=== PATIENT | female | born 1980 | race African-American/Black ===

== ENCOUNTER 2018-02-21 09:24 | Emergency (ER) | payer SELFPAY ==
[~2018-02-21] VITALS: Ht 170.2 cm; Wt 106.6 kg
[2018-02-21 09:39] VITALS: BP 144/84
[2018-02-21] MEDS ORDERED: POLY10DR3 EACHEYE (09:50)
--- NOTE | 2018-02-21 09:51 | PHYS DOC ---
Adult General Chief Complaint Chief Complaint: EYE PROBLEMS [facility] HPI Patient is a 38 year old female who presents with left red conjunctiva, itching , eye discharge, and pain x 4 days. Patient is alert and oriented. Patient denies fever or recent illness. 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 Patient states that her right eye is now starting to itch. Review of Systems Review of Systems Constitutional: Denies fever or chills [] Eyes: Denies change in visual acuity, redness, or eye pain [] HENT: Denies nasal congestion or sore throat [] Respiratory: Denies cough or shortness of breath [] Cardiovascular: No additional information not addressed in HPI [] GI: Denies abdominal pain, nausea, vomiting, bloody stools or diarrhea [] : Denies dysuria or hematuria [] Musculoskeletal: Denies back pain or joint pain [] Integument: Denies rash or skin lesions [] Neurologic: Denies headache, focal weakness or sensory changes [] Endocrine: Denies polyuria or polydipsia [] All other systems were reviewed and found to be within normal limits, except as documented in this note. Allergies Allergies Allergies Coded Allergies Type Severity Reaction Last Updated Verified Penicillins Allergy Intermediate Shortness of Air 02/21/18 Yes Physical Exam Physical Exam Constitutional: Well developed, well nourished, no acute distress, non-toxic appearance. [] HENT: Normocephalic, atraumatic, bilateral external ears normal, oropharynx moist, no oral exudates, nose normal. [] Eyes: PERRLA, EOMI, Conjunctiva red, Discharge, pain, light sensitivity. [] Neck: Normal range of motion, no tenderness, supple, no stridor. [] Cardiovascular:Heart rate regular rhythm, no murmur [] Lungs & Thorax: Bilateral breath sounds clear to auscultation [] Abdomen: Bowel sounds normal, soft, no tenderness, no masses, no pulsatile masses. [] Skin: Warm, dry, no erythema, no rash. [] Back: No tenderness, no CVA tenderness. [] Extremities: No tenderness, no cyanosis, no clubbing, ROM intact, no edema. [] Neurologic: Alert and oriented X 3, normal motor function, normal sensory function, no focal deficits noted. [] Psychologic: Affect normal, judgement normal, mood normal. [] Current Patient Data Vital Signs Vital Signs Date Time Temp Pulse Resp B/P (MAP) Pulse Ox O2 Delivery O2 Flow Rate FiO2 02/21/18 09:39 98.7 68 18 144/84 (104) 100 Room Air 98.7 EKG EKG [] Radiology/Procedures Radiology/Procedures [] Course & Med Decision Making Course & Med Decision Making Patient is alert and oriented. Patient states her left eye began turning red, swollen, itching, pain, light sensitivity 4 days ago. Patient states now her right eye is beginning to itch. Right eye is not red or swollen and is without discharge. Left eye has red conjunctiva, swelling, and light sensitivity. No foreign bodies are seen in eye. PERRLA. Patient is neurologically intact. Patient is given polymyxin eye drops to apply bilaterally QID x 5 days. Patient to follow up with a primary care physician if getting worse. imedla : I was working in the Emergency Department when this patient was seen. I did not see this patient. I was available at all times for consultation as needed. Imelda Vernon Disclaimer Saulo Disclaimer This electronic medical record was generated, in whole or in part, using a voice recognition dictation system. Departure Departure Impression: Primary Impression: [place] eye disease of left eye Disposition: HOME, SELF-CARE Condition: STABLE Referrals: NO PCP (PCP) Patient Instructions: Conjunctivitis (Viral and Bacterial) Additional Instructions: Follow up with your primary care if not getting better Scripts Polymyxin B Sulf/Trimethoprim (POLYMYXIN B-TMP EYE DROPS) 10 Ml Drops 1 DROP EACHEYE QID for Conjunctivitis for 5 Days, #10 ML Prov: TIFFANY OTT APRN 02/21/18 TIFFANY OTT APRN Feb 21, 2018 09:51 BRYAN VILLARREAL MD Feb 22, 2018 06:34
== END 2018-02-21 10:06 | disposition home or self-care (01) ==
LOC: ER 09:24
DX: H10.022 Other mucopurulent conjunctivitis, left eye (principal); Z88.0 Allergy status to penicillin
CPT/HCPCS: 99283

== ENCOUNTER 2018-04-16 06:40 | Emergency (ER) | payer BC ==
[~2018-04-16] VITALS: Ht 170.2 cm; Wt 108.9 kg
[~2018-04-16 06:40] MED LIST: POLY10DR3 EACHEYE
[2018-04-16 07:21] VITALS: BP 133/62
[2018-04-16] MEDS ORDERED: GENT5DRO3 EACHEYE (07:44)
--- NOTE | 2018-04-16 07:44 | PHYS DOC ---
Past Medical History Past Medical History: No Pertinent History Past Surgical History: Alcohol Use: None Drug Use: None Adult General Chief Complaint Chief Complaint: EYE PROBLEMS HPI HPI Patient is a 38 year old female presented to the ER today for evaluation of left eye redness and irritation for the last 3 days. No injury. Patient denied any blurry vision. NO headache, no neck pain, no fever. Patient does not wear contact lens, no history of diabetic. Review of Systems Review of Systems Constitutional: Denies fever or chills [] Eyes: left eye redness and irritation. HENT: Denies nasal congestion or sore throat [] Respiratory: Denies cough or shortness of breath [] Cardiovascular: No additional information not addressed in HPI [] GI: Denies abdominal pain, nausea, vomiting, bloody stools or diarrhea [] : Denies dysuria or hematuria [] Musculoskeletal: Denies back pain or joint pain [] Integument: Denies rash or skin lesions [] Neurologic: Denies headache, focal weakness or sensory changes [] Endocrine: Denies polyuria or polydipsia [] All other systems were reviewed and found to be within normal limits, except as documented in this note. Allergies Allergies Allergies Coded Allergies Type Severity Reaction Last Updated Verified Penicillins Allergy Intermediate Shortness of Air 02/21/18 Yes Physical Exam Physical Exam Constitutional: Well developed, well nourished, no acute distress, non-toxic appearance. [] HENT: Normocephalic, atraumatic, bilateral external ears normal, oropharynx moist, no oral exudates, nose normal. [] Eyes: PERRLA, EOMI,left conjunctiva injection, no discharge. Neck: Normal range of motion, no tenderness, supple, no stridor. [] Cardiovascular:Heart rate regular rhythm, no murmur [] Lungs & Thorax: Bilateral breath sounds clear to auscultation [] Abdomen: deferred. Skin: Warm, dry, no erythema, no rash. [] Back: deferred. Extremities: No tenderness, no cyanosis, no clubbing, ROM intact, no edema. [] Neurologic: Alert and oriented X 3, normal motor function, normal sensory function, no focal deficits noted. [] Psychologic: Affect normal, judgement normal, mood normal. [] Current Patient Data Vital Signs Vital Signs Date Time Temp Pulse Resp B/P (MAP) Pulse Ox O2 Delivery O2 Flow Rate FiO2 04/16/18 07:21 98.7 62 20 133/62 (85) 97 Room Air 98.7 EKG EKG [] Radiology/Procedures Radiology/Procedures [] Course & Med Decision Making Course & Med Decision Making Pertinent Labs and Imaging studies reviewed. (See chart for details) [] Dragon Disclaimer Dragon Disclaimer This electronic medical record was generated, in whole or in part, using a voice recognition dictation system. Departure Departure Impression: Primary Impression: Conjunctivitis, left eye Disposition: HOME, SELF-CARE Condition: STABLE Referrals: NO PCP (PCP) please follow up with an pawn broker next week for reevaluation. Patient Instructions: Bacterial Conjunctivitis Scripts Gentamicin Sulfate (GENTAMICIN SULFATE 0.3% OPHTH SOLN) 5 Ml Drops 2 DROP EACHEYE QID, #5 ML Prov: MARKUS TAYLOR DO 04/16/18 MARKUS TAYLOR DO Apr 16, 2018 07:44
== END 2018-04-16 08:08 | disposition home or self-care (01) ==
LOC: ER 06:40
DX: H10.89 Other conjunctivitis (principal); Z98.890 Other specified postprocedural states; Z88.0 Allergy status to penicillin
CPT/HCPCS: 99283

== ENCOUNTER 2018-10-22 06:32 | Day surgery (SDC) | payer BC ==
[~2018-10-22] VITALS: Ht 175.3 cm; Wt 103.4 kg
[~2018-10-22 06:32] MED LIST changes: +GENT5DRO3 EACHEYE
[2018-10-22] MEDS ORDERED: PROCHLORPERAZINE 10 MG/2 ML VIAL. IV PRN (07:00)
[2018-10-22] MEDS ORDERED: MORPHINE SULFATE 2 MG/ML VIAL. IV PRN (07:00)
[2018-10-22] MEDS ORDERED: IV RINGERS,LACTATED 1000ML 1,000 ML IV SCH (07:00)
[2018-10-22] MEDS ORDERED: fentaNYL PF VIAL 100 MCG/2 ML VIAL IV PRN (07:00)
[2018-10-22] MEDS ORDERED: LIDOCAINE 1% PF 2 ML VIAL. ID PRN (07:00)
[2018-10-22] MEDS ORDERED: HYDROmorphone 2 MG/ML VIAL IV PRN (07:00)
[2018-10-22] MEDS ORDERED: ONDANSETRON PF 4 MG/2 ML VIAL. IV PRN (07:00)
[2018-10-22 07:03] LABS: U PREG PATIENT NEGATIVE (NEG)
[2018-10-22] MEDS ORDERED: LIDOCAINE 2%/EPI 1:100,000 20 ML VIAL. ONE (07:19)
[2018-10-22] MEDS ORDERED: FERRIC SUBSULFATE 8 ML SOL.W.APPL TP ONE ×2 (07:30→09:16)
[2018-10-22] MEDS ORDERED: LIDOCAINE 1%/EPI 1:100,000 20 ML VIAL. ONE (07:30)
[2018-10-22] MEDS ORDERED: SEVOFLURANE 31 TO 60 MINUTES. IH ONE (07:43)
[2018-10-22] MEDS ORDERED: LIDOCAINE 2% PF 5 ML VIAL. ONE (07:44)
[2018-10-22] MEDS ORDERED: PROPOFOL 20 ML IV ONE (07:44)
[2018-10-22] MEDS ORDERED: MIDAZOLAM HCL/PF 2 MG/2 ML VIAL. ONE (07:44)
[2018-10-22] MEDS ORDERED: ONDANSETRON PF 4 MG/2 ML VIAL. ONE (07:44)
[2018-10-22] MEDS ORDERED: fentaNYL PF VIAL 100 MCG/2 ML VIAL ONE (07:44)
[2018-10-22] MEDS ORDERED: PHENYLEPHRINE in 0.9% NACL PF 1 MG/10 ML SYRINGE. IV ONE (07:52)
--- NOTE | 2018-10-22 09:03 | PDOC ---
BRIEF OPERATIVE NOTE Date: Oct 22, 2018 Pre-Op Diagnosis Cervical Dysplasia Post-Op Diagnosis Same Procedure Performed Cervical Cone Biopsy Surgeon Dr. Saxena Anesthesia Type: General Blood Loss 5 ml Specimens Obtained cervical cone biopsy Findings cervical dysplasia Complications none Operative Note see dictation FRED SAXENA Jr, MD Oct 22, 2018 09:03
--- NOTE | 2018-10-22 09:05 | DISCH ---
DISCHARGE INSTRUCTIONS Condition on Discharge Condition on Discharge: Stable Activity After Discharge Activity Instructions for Disc: Activity as tolerated Lifting Instructions after Dis: No heavy lifting Driving Instructions after Dis: Do not drive today Diet after Discharge Diet after Discharge: Regular Contacting the DRNohemy after DC Call your doctor for: Concerns you may have Follow-Up Follow up with: Dr. Saxena in 1 week. FRED SAXENA Jr, MD Oct 22, 2018 09:05
[2018-10-22] MEDS: fentaNYL PF VIAL 100 MCG/2 ML VIAL IV PRN ×2 (09:25→10:04)
[2018-10-22] MEDS ORDERED: oxyCODONE/APAP 5/325 1 TAB TABLET PO ONE ×2 (09:30)
--- NOTE | 2018-10-22 09:31 | OP ---
DATE OF SURGERY: PREOPERATIVE DIAGNOSIS: Cervical dysplasia. POSTOPERATIVE DIAGNOSIS: Cervical dysplasia. PROCEDURE: Cervical cone biopsy. SURGEON: Fred Saxena MD ANESTHESIA: GETA. ESTIMATED BLOOD LOSS: Less than 5 mL. COMPLICATIONS: None. FINDINGS: Cervical dysplasia. SUMMARY: A 38-year-old female with cervical dysplasia. At the time of colposcopic biopsy requiring cold knife cone biopsy. The patient was counseled on risks, benefits and expectations and voiced a clear understanding to proceed. DESCRIPTION OF PROCEDURE: The patient was taken to surgery suite and placed in dorsal lithotomy position. She was prepped with Betadine solution and draped in a sterile fashion. After adequate anesthesia, weighted speculum and curved Elayne placed vaginally. The anterior lip of the cervix was grasped with a single tooth tenaculum. A 2-0 Vicryl suture was placed at 3 o'clock and 9 o'clock position for stabilization of the cervix. Lidocaine 1% with epinephrine injected in a circumferential manner. Cold knife cone biopsy was performed with a scalpel in which the anterior and posterior lip of the cervix removed in a cone shape. The remaining cervix was fulgurated with Bovie cautery and Monsel solution was also added for better hemostasis. The single tooth tenaculum and weighted speculum were then removed. The patient tolerated the procedure well and was taken to recovery room in stable condition. Sponge and needle counts correct x 3. FRED SAXENA MD DR: ALLAN/miladis JOB#: [id number] / [id number]
[2018-10-22] MEDS ORDERED: OXYC1TAB15 PO (09:57)
[2018-10-22 10:10] VITALS: BP 116/90
[2018-10-23] MEDS ORDERED: IBUP-1060 PO (21:43)
--- NOTE | 2018-10-26 11:09 | PATHOLOGY ---
[facility] Accession Number: [id number] . 01 Material submitted: . cervix - CERVICAL CONE BIOPSY . 01 Clinical history: . Cervical dysplasia . 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 - JARED-III is focally present at the endocervical margin. - Exocervical and deep endocervical margins negative for JARED-III. - Focal hypercornification of exocervix. - Chronic cervicitis with focal squamous metaplasia. . (JPM:mml; 10/23/2018) [facility]/10/26/2018 . 02 Comment: Sections of the cervical cone biopsy show foci of severe dysplasia / carcinoma in situ (JARED-III) with focal endocervical glandular extension. There is no evidence of invasive carcinoma. Other areas of the cone show foci of mild dysplasia with changes of HPV effect. JARED-III is focally present at the endocervical margin. The exocervical and and deep endocervical margins are negative for JARED-III. . (JPM:mml; 10/23/2018) . 02 Electronically signed: . Lester Boles MD, Pathologist NPI- [id number] . 01 Gross description: . The specimen is received in formalin, labeled "[place]any [place], cervical cone biopsy" and consists of an oriented cervical cone measuring 2.4 x 2.0 x 1.0 cm. A suture is present designating 12:00. The 0.5 cm cervical os is surrounded by glistening pink-wright ectocervical mucosa. The proximal margin is inked blue and the ectocervical rim black. It is radially sectioned and entirely submitted as follows: . A1: 12-3:00 A2: 3-6:00 A3: 6-9:00 A4: 9-12:00 (SDY; 10/22/2018) SYU/SYU . 02 Pathologist provided ICD-10: D06.9, N72 . 02 CPT . 860322 Specimen Comment: A courtesy copy of this report has been sent to Specimen Comment: [phone]. Specimen Comment: Report sent to Performed at: [address] [id number] MD Jamie Calloway MD Phone: [phone] Performed at: [address] [id number] MD Lester Boles MD Phone: [phone]
== END 2018-10-22 10:52 | disposition home or self-care (01) ==
LOC: SURG 06:32
PROVIDERS: ATTEND Obstetrics & Gynecology
DX: D06.0 Carcinoma in situ of endocervix (principal); N72 Inflammatory disease of cervix uteri; Z88.0 Allergy status to penicillin; Z98.890 Other specified postprocedural states
CPT/HCPCS: 57520; 81025; J0696; J0780; J2001; J2250; J2370; J2405; J2704; J3010; J3490; 88307

== ENCOUNTER 2018-10-23 20:57 | Emergency (ER) | payer BC ==
[~2018-10-23] VITALS: Ht 167.6 cm; Wt 104.3 kg
[~2018-10-23 20:57] MED LIST changes: +OXYC1TAB15 PO
[2018-10-23 21:10] VITALS: BP 148/72
--- NOTE | 2018-10-23 21:30 | PHYS DOC ---
Past Medical History Past Medical History: No Pertinent History Past Surgical History: Alcohol Use: None Drug Use: None Adult General Chief Complaint Chief Complaint: POST-OP PROBLEM HPI HPI Patient is a 38 year old F who had a colposcopy done yesterday by Dr. Luevano. She was prescribed percocet but states she took one and it made her throat swell so she has just been taking tylenol. She is here due to a discomfort in the vaginal area that she describes as a "tightness". Review of Systems Review of Systems Constitutional: Denies fever or chills [] Eyes: Denies change in visual acuity, redness, or eye pain [] HENT: Denies nasal congestion or sore throat [] Respiratory: Denies cough or shortness of breath [] Cardiovascular: No additional information not addressed in HPI [] GI: Denies abdominal pain, nausea, vomiting, bloody stools or diarrhea [] : Denies dysuria or hematuria. Vaginal pain and pink drainage. Musculoskeletal: Denies back pain or joint pain [] Integument: Denies rash or skin lesions [] Neurologic: Denies headache, focal weakness or sensory changes [] Endocrine: Denies polyuria or polydipsia [] All other systems were reviewed and found to be within normal limits, except as documented in this note. Current Medications Current Medications Current Medications Medications (Trade) Dose Ordered Sig/Barbara Start Time Stop Time Status Last Admin Dose Admin Ibuprofen (Motrin) 800 mg 1X ONCE 10/23/18 22:00 10/23/18 22:01 DC 10/23/18 22:00 800 MG Allergies Allergies Allergies Coded Allergies Type Severity Reaction Last Updated Verified Penicillins Allergy Intermediate Shortness of Air 10/21/18 Yes Physical Exam Physical Exam Constitutional: Well developed, well nourished, no acute distress, non-toxic appearance. [] Neck: Normal range of motion, no tenderness, supple, no stridor. [] Cardiovascular:Heart rate regular rhythm, no murmur [] Lungs & Thorax: Bilateral breath sounds clear to auscultation [] Abdomen: Bowel sounds normal, soft, no tenderness, no masses, no pulsatile masses. [] Skin: Warm, dry, no erythema, no rash. [] Back: No tenderness, no CVA tenderness. [] Extremities: No tenderness, no cyanosis, no clubbing, ROM intact, no edema. [] Neurologic: Alert and oriented X 3, normal motor function, normal sensory function, no focal deficits noted. [] Psychologic: Affect normal, judgement normal, mood normal. [] : speculum exam done: small amt of pink tinged discharge in vaginal vault, raw tissue in cervix and vaginal region. No signs of infection or heavy bleeding. Normal exam for 1 day s/p colposcopy. Current Patient Data Vital Signs Vital Signs Date Time Temp Pulse Resp B/P (MAP) Pulse Ox O2 Delivery O2 Flow Rate FiO2 10/23/18 21:10 98.2 70 16 148/72 (97) 98 Room Air 98.2 EKG EKG [] Radiology/Procedures Radiology/Procedures [] Course & Med Decision Making Course & Med Decision Making Pertinent Labs and Imaging studies reviewed. (See chart for details) I recommended Ibuprofen to help with pain with the inflammation that is to be expected post procedure. Will write for 800mg Ibuprofen. Pt to f/u with her OB on Friday if symptoms persist. Note written for off work 2 days. Dragon Disclaimer Dragon Disclaimer This electronic medical record was generated, in whole or in part, using a voice recognition dictation system. Departure Departure Impression: Primary Impression: Post procedure discomfort Disposition: HOME, SELF-CARE Condition: IMPROVED Referrals: NO PCP (PCP) FRED GARY Jr, MD Patient Instructions: Colposcopy, Care After, [id number] Additional Instructions: Rest, pelvic rest (no bike riding, horseback riding, jogging, sex, etc). Call your mantel craftsman on Friday to let him know how you are doing. Scripts Ibuprofen (IBUPROFEN) 800 Mg Tablet 800 MG PO PRN Q8HRS PRN for INFLAMMATION, #20 TAB with food Prov: LAKSHMI DUBON 10/23/18 LAKSHMI DUBON Oct 23, 2018 21:30
[2018-10-23] MEDS ORDERED: IBUP-1060 PO (21:43)
[2018-10-23] MEDS ORDERED: IBUPROFEN 400 MG TABLET. PO ONE (22:00)
== END 2018-10-23 22:00 | disposition home or self-care (01) ==
LOC: ER 20:57
DX: G89.18 Other acute postprocedural pain (principal); Z98.890 Other specified postprocedural states; Z88.0 Allergy status to penicillin
CPT/HCPCS: 99282

== ENCOUNTER 2019-04-12 00:27 | Emergency (ER) | payer BC ==
[~2019-04-12] VITALS: Ht 167.6 cm; Wt 105.2 kg
[~2019-04-12 00:27] MED LIST changes: +IBUP-1060 PO
[2019-04-12 00:36] VITALS: BP 128/79
[2019-04-12 00:43] LABS: BILIRUBIN,URINE NEGATIVE (NEG); CLARITY,URINE CLEAR; COLOR,URINE YELLOW; NITRITE,URINE NEGATIVE (NEG); PH,URINE 6.5; PROTEIN,URINE NEGATIVE (NEG-TRACE)
[2019-04-12 00:49] LABS: SQUAMOUS EPITHELIAL CELL,UR MOD /LPF
[2019-04-12 00:50] LABS: BACTERIA,URINE FEW /HPF (0-FEW)
[2019-04-12] MEDS ORDERED: CEPH-264 PO (01:12)
[2019-04-12] MEDS ORDERED: METR500T PO (01:12)
--- NOTE | 2019-04-12 01:13 | PHYS DOC ---
Past Medical History Past Medical History: Other Additional Past Medical Histor: cervical cancer Past Surgical History: Cancer Surgery, Alcohol Use: Rarely Drug Use: None Adult General Chief Complaint Chief Complaint: PAIN ON URINATION HPI HPI Patient is a 39 year old female that presents to the emergency Department with urinary urgency, and discomfort this been ongoing for week accompanied by fell odor. The patient denies any pain at this time. The patient states she saw her BAKING ASSISTANT 2 weeks ago and did not have any STDs. Review of Systems Review of Systems Constitutional: Denies fever or chills [] Eyes: Denies change in visual acuity, redness, or eye pain [] HENT: Denies nasal congestion or sore throat [] Respiratory: Denies cough or shortness of breath [] Cardiovascular: No additional information not addressed in HPI [] GI: Denies abdominal pain, nausea, vomiting, bloody stools or diarrhea [] : Reports odor, urgency, and dysuria Musculoskeletal: Denies back pain or joint pain [] Integument: Denies rash or skin lesions [] Neurologic: Denies headache, focal weakness or sensory changes [] Complete systems were reviewed and found to be within normal limits, except as documented in this note. Allergies Allergies Allergies Coded Allergies Type Severity Reaction Last Updated Verified Penicillins Allergy Intermediate Shortness of Air 10/21/18 Yes Physical Exam Physical Exam Constitutional: Well developed, well nourished, no acute distress, non-toxic appearance. [] HENT: Normocephalic, atraumatic, bilateral external ears normal, oropharynx moist, no oral exudates, nose normal. [] Eyes: PERRLA, EOMI, conjunctiva normal, no discharge. [] Neck: Normal range of motion, no tenderness, supple, no stridor. [] Skin: Warm, dry, no erythema, no rash. [] Back: No tenderness, no CVA tenderness. [] Extremities: No tenderness, no cyanosis, no clubbing, ROM intact, no edema. [] Neurologic: Alert and oriented X 3, normal motor function, normal sensory function, no focal deficits noted. [] Psychologic: Affect normal, judgement normal, mood normal. [] Current Patient Data Vital Signs Vital Signs Date Time Temp Pulse Resp B/P (MAP) Pulse Ox O2 Delivery O2 Flow Rate FiO2 04/12/19 00:36 98.1 64 20 128/79 (95) 100 Room Air 98.1 Lab Values Laboratory Tests Test 04/12/19 00:34 04/12/19 00:37 Urine Collection Type Unknown Urine Color Yellow Urine Clarity Clear Urine pH 6.5 Urine Specific [place] >=1.030 Urine Protein Negative mg/dL (NEG-TRACE) Urine Glucose (UA) Negative mg/dL (NEG) Urine Ketones (Stick) Negative mg/dL (NEG) Urine Blood Negative (NEG) Urine Nitrite Negative (NEG) Urine Bilirubin Negative (NEG) Urine Urobilinogen Dipstick 1.0 mg/dL (0.2 mg/dL) Urine Leukocyte Esterase Negative (NEG) Urine RBC 1-2 /HPF (0-2) Urine WBC 5-10 /HPF (0-4) Urine Squamous Epithelial Cells Mod /LPF Urine Bacteria Few /HPF (0-FEW) Urine Mucus Mod /LPF POC Urine HCG, Qualitative Hcg negative (Negative) EKG EKG [] Radiology/Procedures Radiology/Procedures [] Course & Med Decision Making Course & Med Decision Making Pertinent Labs and Imaging studies reviewed. (See chart for details) Urine has 5-10 WBC and patient is symptomatic. Will treat for UTI. Patient also states she has a foul odor. Discussed the possibility of Bacterial Vaginosis with patient and will treat. Dragon Disclaimer Dragon Disclaimer This electronic medical record was generated, in whole or in part, using a voice recognition dictation system. Departure Departure Impression: Primary Impression: Urinary tract infection Additional Impression: Bacterial vaginosis Disposition: 01 HOME, SELF-CARE Condition: STABLE Referrals: NO PCP (PCP) Patient Instructions: Bacterial Vaginosis, Urinary Tract Infection Additional Instructions: Thank you for visiting [facility]. We appreciate you trusting us with your care. If any additional problems come up don't hesitate to return to visit us. Please follow up with your primary care provider so they can plan additional care if needed and know about the problem that you had. If symptoms worsen come back to the Emergency Department. Any concerning symptoms that start such as chest pain, shortness of air, weakness or numbness on one side of the body, running high fevers or any other concerning symptoms return to the ER. You have been prescribed an antibiotic today to help fight your infection. Please take all of the antibiotic as directed. If after 48 hours the infection is not improving, please return for more care. If the infection worsens, return to ER for additional care. Scripts Metronidazole (FLAGYL) 500 Mg Tablet 1 TAB PO BID for 7 Days, #14 TAB Prov: SHITAL BALDERRAMA APRN 04/12/19 Cephalexin (KEFLEX) 500 Mg Capsule 1 CAP PO BID for 7 Days, #14 CAP 0 Refills Prov: SHITAL BALDERRAMA APRN 04/12/19 Problem Qualifiers Primary Impression: Urinary tract infection Urinary tract infection type: acute cystitis Hematuria presence: without hematuria Qualified Codes: N30.00 - Acute cystitis without hematuria SHITAL BALDERRAMA APRN Apr 12, 2019 01:13
== END 2019-04-12 01:25 | disposition home or self-care (01) ==
LOC: ER 00:27
DX: N30.00 Acute cystitis without hematuria (principal); N76.0 Acute vaginitis; B96.89 Other specified bacterial agents as the cause of diseases classified elsewhere; Z88.0 Allergy status to penicillin
CPT/HCPCS: 81001; 81025; 87086; 99284

== ENCOUNTER 2019-11-03 05:04 | Emergency (ER) | payer BC, OTHER ==
[~2019-11-03] VITALS: Ht 167.6 cm; Wt 109.0 kg
[~2019-11-03 05:04] MED LIST changes: +CEPH-264 PO; +METR500T PO
[2019-11-03] MEDS ORDERED: IV NORMAL SALINE 1000ML BAG 1,000 ML IV ONE (05:45)
[2019-11-03 05:55] LABS: BILIRUBIN,URINE NEGATIVE (NEG); CLARITY,URINE CLEAR; COLOR,URINE YELLOW; NITRITE,URINE NEGATIVE (NEG); PH,URINE 5.5 (<5.0-8.0); PROTEIN,URINE NEGATIVE (NEG-TRACE)
[2019-11-03 05:56] LABS: BASO % 1 % (0-3); EOS # 0.1 x10^3/uL (0.0-0.7); EOS % 4 % (0-3); HEMATOCRIT 34.5 % (36.0-47.0); HEMOGLOBIN 11.2 g/dL (12.0-15.5); LYMPH % 25 % (24-48); MEAN CORPUSCULAR HEMOGLOBIN 24 pg (25-35); MEAN CORPUSCULAR HGB CONC 32 g/dL (31-37); MEAN CORPUSCULAR VOLUME 75 fL (79-100); MONO # 0.4 x10^3/uL (0.0-1.1); MONO % 9 % (0-9); NEUT # 2.6 x10^3/uL (1.8-7.7); NEUT % 62 % (31-73); PLATELET COUNT 176 x10^3/uL (140-400); RED CELL DISTRIBUTION WIDTH 16.1 % (11.5-14.5); WHITE BLOOD COUNT 4.2 x10^3/uL (4.0-11.0)
[2019-11-03 06:00] LABS: CALCIUM 8.6 mg/dL (8.5-10.1); CREATININE 0.6 mg/dL (0.6-1.0); GFR 135.4; POTASSIUM 4.1 mmol/L (3.5-5.1)
[2019-11-03 06:06] LABS: ALBUMIN 3.7 g/dL (3.4-5.0); ALBUMIN/GLOBULIN RATIO 0.8 (1.0-1.7); TOTAL BILIRUBIN 0.3 mg/dL (0.2-1.0); TOTAL PROTEIN 8.1 g/dL (6.4-8.2)
[2019-11-03 06:09] LABS: U PREG PATIENT NEGATIVE (NEG)
--- NOTE | 2019-11-03 06:09 | PHYS DOC ---
Past Medical History Past Medical History: Other Additional Past Medical Histor: HPV (SHITAL HEWITT DO) Past Surgical History: Cancer Surgery, , Tubal ligation Additional Past Surgical Histo: ESSURE coil implant bc, JARED (II)with procedure, (SHITAL HEWITT DO) Smoking Status: Never Smoker Alcohol Use: Rarely Drug Use: None (SHITAL HEWITT DO) General Adult EDM: Chief Complaint: VAGINAL BLEEDING HPI: HPI: 39-year-old female presents with report of heavy vaginal bleeding that started on 11/01/2019. Patient reports last night she went through approximately "15 overnight pads". Reports some associated dizziness/lightheadedness. Denies fever or chills. Denies trauma. Reports history of uterine fibroid. Denies concern for STDs. 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 Denie s . Denies use of blood thinners. 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 (SHITAL HEWITT DO) Current Medications: Current Medications Medications (Trade) Dose Ordered Sig/Barbara Start Time Stop Time Status Last Admin Dose Admin Fentanyl Citrate (Fentanyl 2ml Vial) 50 mcg 1X ONCE 11/03/19 06:15 11/03/19 06:16 UNV Sodium Chloride 1,000 ml @ 1,000 mls/hr 1X ONCE 11/03/19 05:45 11/03/19 06:44 11/03/19 05:45 1,000 MLS/HR (SHITAL HEWITT DO) Allergies: Allergies: Allergies Coded Allergies Type Severity Reaction Last Updated Verified Penicillins Allergy Intermediate Shortness of Air 10/21/18 Yes (SHITAL HEWITT DO) Physical Exam: PE: Constitutional: Well developed, well nourished, no acute distress, non-toxic appearance HENT: Normocephalic, atraumatic Eyes: Conjunctiva normal, no discharge Neck: Normal range of motion, no tenderness, supple Cardiovascular: Heart rate normal, regular rhythm Lungs & Thorax: Bilateral breath sounds clear to auscultation, no wheezing Abdomen: Soft, no tenderness 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, external genitalia normal, blood clots noted in vaginal vault, slow oozing noted from os, no CMT, no adnexal tenderness Skin: Warm, dry, no erythema, no rash Back: No tenderness, no CVA tenderness Extremities: No tenderness, ROM intact, no edema Neurologic: Alert and oriented X 3, no focal deficits noted Psychologic: Affect normal, judgment normal (SHITAL HEWITT DO) Current Patient Data: Labs: Laboratory Tests Test 11/03/19 05:45 Sodium Level 136 mmol/L (136-145) Potassium Level 4.1 mmol/L (3.5-5.1) Chloride Level 102 mmol/L (98-107) Carbon Dioxide Level 25 mmol/L (21-32) Anion Gap 9 (6-14) Blood Urea Nitrogen 11 mg/dL (7-20) Creatinine 0.6 mg/dL (0.6-1.0) Estimated GFR (Cockcroft-Gault) 135.4 BUN/Creatinine Ratio 18 (6-20) Glucose Level 90 mg/dL (70-99) Calcium Level 8.6 mg/dL (8.5-10.1) Magnesium Level Pending Total Bilirubin Pending Aspartate Amino Transferase (AST) Pending Alanine Aminotransferase (ALT) Pending Alkaline Phosphatase Pending Total Protein Pending Albumin Pending Albumin/Globulin Ratio Pending Laboratory Tests 11/03/19 05:45 Vital Signs: Vital Signs Date Time Temp Pulse Resp B/P (MAP) Pulse Ox O2 Delivery O2 Flow Rate FiO2 11/03/19 05:24 98.4 66 20 144/80 (101) 98 Room Air 98.4 (SHITAL HEWITT DO) EKG: EKG: [] (SHITAL HEWITT DO) Radiology/Procedures: Radiology/Procedures: [] (SHITAL HEWITT DO) Radiology/Procedures: [facility] [address] [place] [address] IMAGING REPORT Signed PATIENT: VLDAIMIR REILLY ACCOUNT: [id number] : 1980 LOCATION: ER AGE: 39 SEX: F EXAM STATUS: REG ER ORD. PHYSICIAN: SHITAL HEWITT DO REASON: menorrhagia PROCEDURE: PELVIS COMPLETE PELVIS COMPLETE Clinical Indication: Menorrhagia. Comparison: None. TECHNIQUE: Real-time ultrasound imaging of the pelvis using transabdominal window is performed. Findings: Uterus measures 10.8 x 9.1 x 6.2 cm. There is an exophytic subserosal fibroid at the fundus measuring up to 3 cm. There is a probable intramural fibroid on the right in the body measuring up to 3.8 cm. This appears partially calcified. There is a probable intramural fibroid on the left in the body measuring 4.7 x 4 x 4.6 cm. A submucosal fibroid is not identified. The endometrial stripe is normal measuring 6 mm. Normal blood flow is demonstrated in the ovaries. There is a right ovary functional cyst measuring up to 2.1 cm. There is no pelvic free fluid. No evidence of adnexal mass. IMPRESSION: 1. Enlarged, myomatous uterus. 2. The endometrial stripe is normal. 3. Normal blood flow in the ovaries. Electronically signed by: Ja Almanzar MD (11/03/2019 7:03 AM) [id number] DICTATED and SIGNED BY: JA ALMANZAR MD DATE: 11/03/19702 (MARKUS TAYLOR DO) Course & Med Decision Making: Course & Med Decision Making Pertinent Labs and Imaging studies reviewed. (See chart for details) Patient presents with abnormal vaginal bleeding for the past 2 days which became worse last night. Patient does report history of prior tubal ligation as well as known fibroid. Patient reports some associated dizziness/lightheadedness. No history of blood thinner use. Vital signs stable upon arrival. IV fluid hydration provided. Pain addressed. Pelvic exam performed with notation of slow oozing from os. Labs obtained and pending. Pelvic ultrasound pending. Signout given to Dr. Taylor for further evaluation and final disposition. Discussed current findings and plan with patient, who acknowledges understanding and agreement. (HEWITT,SHITAL [place] Disclaimer: Saulo Disclaimer: This electronic medical record was generated, in whole or in part, using a voice recognition dictation system. (SHITAL HEWITT DO) Departure Departure Impression: Primary Impression: Menometrorrhagia Additional Impressions: Dysfunctional uterine bleeding Fibroid Bacterial vaginosis Disposition: HOME, SELF-CARE Condition: IMPROVED Referrals: NO PCP (PCP) FRED SAXENA Jr, MD follow up with Dr. Saxena in a few day. Patient Instructions: Bacterial Vaginosis, Fibroids, [id number], Uterine Bleeding, Dysfunctional Additional Instructions: Please take IBUPROFEN OR NAPROXEN 800 MG BY MOUTH EVERY 8 HOURS NEEDED FOR PAIN CONTROL. RETURN IF WORSEN VAGINAL BLEEDING. Scripts Metronidazole (FLAGYL) 500 Mg Tablet 1 TAB PO BID, #14 TAB Prov: MARKUS TAYLOR DO 11/03/19 Medroxyprogesterone Acetate (PROVERA) 10 Mg Tablet 1 TAB PO DAILY, #10 TAB Prov: MARKUS TAYLOR DO 11/03/19 SHITAL HEWITT DO November 03, 2019 06:09 MARKUS TAYLOR DO November 03, 2019 07:20
[2019-11-03 06:14] LABS: BACTERIA,URINE 0 /HPF (0-FEW); RBC,URINE 0 /HPF (0-2); SQUAMOUS EPITHELIAL CELL,UR MOD /LPF; WBC,URINE 0 /HPF (0-4)
[2019-11-03] MEDS ORDERED: fentaNYL PF VIAL 100 MCG/2 ML VIAL IV ONE (06:15)
--- NOTE | 2019-11-03 07:05 | RAD ---
PELVIS COMPLETE Clinical Indication: Menorrhagia. Comparison: None. TECHNIQUE: Real-time ultrasound imaging of the pelvis using transabdominal window is performed. Findings: Uterus measures 10.8 x 9.1 x 6.2 cm. There is an exophytic subserosal fibroid at the fundus measuring up to 3 cm. There is a probable intramural fibroid on the right in the body measuring up to 3.8 cm. This appears partially calcified. There is a probable intramural fibroid on the left in the body measuring 4.7 x 4 x 4.6 cm. A submucosal fibroid is not identified. The endometrial stripe is normal measuring 6 mm. Normal blood flow is demonstrated in the ovaries. There is a right ovary functional cyst measuring up to 2.1 cm. There is no pelvic free fluid. No evidence of adnexal mass. IMPRESSION: 1. Enlarged, myomatous uterus. 2. The endometrial stripe is normal. 3. Normal blood flow in the ovaries. Electronically signed by: Ja Almanzar MD (11/03/2019 7:03 AM) [id number]
[2019-11-03] MEDS ORDERED: MEDR10TA PO (07:18)
[2019-11-03 07:25] VITALS: BP 141/72
[2019-11-03] MEDS ORDERED: METR500T PO (07:25)
[2019-11-03 11:04] LABS: PLT ESTIMATE ADEQUATE (ADEQUATE)
[2019-11-03 11:06] LABS: ANISOCYTOSIS PRESENT; HYPOCHROMIA PRESENT
[2019-11-04 16:10] LABS: GC PROBE Negative (Negative)
== END 2019-11-03 07:39 | disposition home or self-care (01) ==
LOC: ER 05:04
DX: N92.1 Excessive and frequent menstruation with irregular cycle (principal); N93.8 Other specified abnormal uterine and vaginal bleeding; N76.0 Acute vaginitis; D25.2 Subserosal leiomyoma of uterus; Z98.890 Other specified postprocedural states; Z98.51 Tubal ligation status; Z88.0 Allergy status to penicillin
CPT/HCPCS: 36415; 76856; 80053; 81001; 81025; 83735; 85025; 85610; 85730; 87491; 87591; 96361; 96374; 99284; J3010; J7030; Q0111

== ENCOUNTER → 2019-12-09 | Outpatient (CLI) | payer OTHER ==
[~2019-12-09] MED LIST changes: +MEDR10TA PO
--- NOTE | 2019-12-09 14:18 | RAD ---
Pelvic ultrasound to include transabdominal and transvaginal imaging 12/09/2019 CLINICAL HISTORY: Menorrhagia. TECHNIQUE: Using the distended urinary bladder as a sonographic window, a real-time ultrasound examination of the pelvis was performed. Additionally in an attempt to better evaluate the uterus and adnexa, a transvaginal ultrasound study was performed. Multiple images were obtained. FINDINGS: Comparison study is dated 11/03/2019. The uterus is enlarged. It measures 12.1 x 9.0 x 7.3 cm in longitudinal, transverse, and AP dimensions. The endometrial echo complex measures 4 mm in thickness which is within normal limits. Multiple hypoechoic rounded mass lesions some of which are partially calcified are seen scattered throughout the uterus consistent with fibroids. These measure 1 cm to 4.5 cm in greatest diameter. Both ovaries are within normal limits in size. The right ovary measures 4.8 x 2.1 x 2.5 cm in size. The left ovary measures 3.0 x 2.4 x 1.9 cm in size. A 3.4 cm simple cyst is involving the left ovary. Normal color-flow and pulse doppler imaging to both ovaries is seen. No adnexal mass is noted. No free fluid is seen. IMPRESSION: 1. Enlarged fibroid uterus, unchanged. 2. 3.4 cm left ovarian cyst. Electronically signed by: Gelacio Haider MD (12/09/2019 2:15 PM) [id number]
== END ==
LOC: US 10:46
PROVIDERS: ATTEND Obstetrics & Gynecology
DX: N92.0 Excessive and frequent menstruation with regular cycle (principal); D21.9 Benign neoplasm of connective and other soft tissue, unspecified; N83.202 Unspecified ovarian cyst, left side
CPT/HCPCS: 76830; 76856